=== PATIENT | female | born 1940 | race Caucasian/White ===

== ENCOUNTER 2017-01-12 22:00 | Emergency (ER) | payer MEDICARE, OTHER ==
--- NOTE | ~2017-01-12 | EKG ---
PATIENT: BRAULIO ATKINS UNIT #: [id number] Ventricular Rate: 88 BPM Atrial Rate: 88 BPM P-R Interval: 146 ms QRS Duration: 56 ms Q-T Interval: 354 ms QTC Calculation(Bezet): 428 ms P [place]: 84 degrees Calculated R [place]: -34 degrees Calculated T [place]: 6 degrees Diagnosis Line: Sinus rhythm with Premature atrial complexes Diagnosis Line: Left axis deviation Diagnosis Line: Cannot rule out Anteroseptal infarct (cited on or Diagnosis Line: before 12-JAN-2017) Diagnosis Line: Abnormal ECG Diagnosis Line: When compared with ECG of 12-JAN-2017 21:27, Diagnosis Line: (unconfirmed) Diagnosis Line: Normal sinus rhythm has replaced Supraventricular Diagnosis Line: tachycardia Diagnosis Line: Confirmed by ADA DE LEON MD ([id number]) on 01/13/2017 Diagnosis Line: 11:25:58 PM INTERPRETING MD: MOISES SIMMONS
--- NOTE | ~2017-01-12 | EKG ---
PATIENT: BRAULIO ATKINS UNIT #: [id number] Ventricular Rate: 163 BPM Atrial Rate: 163 BPM QRS Duration: 66 ms Q-T Interval: 292 ms QTC Calculation(Bezet): 480 ms Calculated R [place]: -21 degrees Calculated T [place]: 63 degrees Diagnosis Line: Supraventricular tachycardia Diagnosis Line: Cannot rule out Anteroseptal infarct , age Diagnosis Line: undetermined Diagnosis Line: Abnormal ECG Diagnosis Line: No previous ECGs available Diagnosis Line: Confirmed by ADA DE LEON MD ([id number]) on 01/13/2017 Diagnosis Line: 11:24:37 PM INTERPRETING MD: MOISES SIMMONS
[2017-01-12 21:55] LABS: BASOPHIL# 0.1 X10e3 (0-0.3); BASOPHIL% 1.1 % (0-2.5); EOSINOPHIL# 0.2 X10e3 (0-0.7); EOSINOPHIL% 2.8 % (0.0-7.0); HEMOGLOBIN 15.5 gm/dL (12.0-16.0); LYMPHOCYTE# 2.9 X10e3 (1.0-3.5); LYMPHOCYTE% 46.1 % (17.0-45.0); MEAN CELL VOLUME 93.2 FL (83-96); MEAN CORPUSCULAR HEMOGLOBIN 31.3 PG (28-34); MEAN CORPUSCULAR HGB CONC 33.6 g/dL (30-36); MEAN PLATELET VOLUME 8.6 FL (6.5-11.5); MONOCYTE# 0.8 X10e3 (0-1.0); MONOCYTE% 12.2 % (3.0-12.0); NEUTROPHIL# 2.4 X10e3 (1.5-7.1); NEUTROPHIL% 37.8 % (40-75); PLATELET COUNT 193 X10e3 (140-420); RED BLOOD COUNT 4.94 X10e (3.90-5.30); RED CELL DISTRIBUTION WIDTH 13.3 % (11.0-15.5); WHITE BLOOD COUNT 6.4 X10e3 (4.0-10.5)
[2017-01-12 22:04] LABS: POC - CKMB <1.0 ng/mL (0.0-7.9); POC - TROPONIN <0.05 ng/mL (<=0.05)
[2017-01-12 22:12] LABS: DIFF IND NO
[2017-01-12 22:18] LABS: ALBUMIN SERUM 4.4 g/dL (3.5-5.0); BILIRUBIN, DIRECT 0.2 mg/dL (0.0-0.2); BILIRUBIN,INDIRECT 0.5 mg/dL (0.0-0.9); BILIRUBIN,TOTAL 0.7 mg/dL (0.2-2.0); BUN/CREATININE RATIO 22.22; CREATININE SERUM 0.9 mg/dL (0.6-1.4); GLOM FILT RATE Estimated 62.2 mL/min (>60); PROTEIN TOTAL SERUM 7.3 g/dL (6.0-8.3)
== END 2017-01-12 23:05 | disposition home or self-care (01) ==
LOC: CED 22:00
PROVIDERS: Emergency Medicine
DX: I47.1 Supraventricular tachycardia (principal); Z88.2 Allergy status to sulfonamides
CPT/HCPCS: 36415; 80048; 80076; 82553; 84484; 85025; 93005; 99284

== ENCOUNTER 2017-01-13 16:39 | Emergency (ER) | payer MEDICARE, OTHER ==
--- NOTE | ~2017-01-13 | EKG ---
PATIENT: BRAULIO ATKINS UNIT #: [id number] Ventricular Rate: 158 BPM Atrial Rate: 153 BPM QRS Duration: 66 ms Q-T Interval: 286 ms QTC Calculation(Bezet): 463 ms Calculated R [place]: -12 degrees Calculated T [place]: 59 degrees Diagnosis Line: Atrial fibrillation with rapid ventricular Diagnosis Line: response Diagnosis Line: Septal infarct , age undetermined Diagnosis Line: Abnormal ECG Diagnosis Line: No previous ECGs available Diagnosis Line: Confirmed by ADA DE LEON MD ([id number]) on 01/13/2017 Diagnosis Line: 11:40:40 PM INTERPRETING MD: MOISES SIMMONS
--- NOTE | ~2017-01-13 | CR72 ---
[facility] A Service of [facility] RADIOLOGY TEXT RESULTS PATIENT: BRAULIO ATKINS LOCATION: [facility] : 40 UNIT #: [id number] AGE: [address]: Davidson Ha MD SEX: F ORDER DR: [id number] [facility] [address] [place], [place] [address] [id number] E MR#: [id number] #: [id number] NAME: BRAULIO ATKINS : 1940 SEX: F STUDY DATE/TIME: 01/13/2017 17:04 UNIT: [facility] ROOM: STUDY DESCRIPTION: CR Chest Single View Portable Attending Physician: Davidson Ha M.D. Ordering Physician: Ed Doctor [id number] [facility] Primary Care Physician: Sonido Schultz M.D. MEDICAL IMAGING REPORT This report is preliminary unless electronic signature is present EXAM Single view chest INDICATIONS Heart palpitations. Midchest pain for 1 day. FINDINGS Single portable AP view chest compared to 03/14/2015. The heart mediastinal contours are unchanged. Background COPD. No focal consolidation. No pleural effusion. There are defibrillator pads over the chest. IMPRESSION No acute cardiopulmonary findings or significant interval change. Dictated by... Juan F Ortega M.D. THIS IS AN ELECTRONICALLY VERIFIED REPORT Juan F Ortega M.D. at 01/13/2017 10:31 PM CASSIE/andrew TD: 01/13/2017 21:57 JOB #: [id number] MEDICAL IMAGING REPORT Page 1 of 1 COPY
--- NOTE | ~2017-01-13 | EKG ---
PATIENT: BRAULIO ATKINS UNIT #: [id number] Ventricular Rate: 85 BPM Atrial Rate: 85 BPM P-R Interval: 136 ms QRS Duration: 68 ms Q-T Interval: 336 ms QTC Calculation(Bezet): 399 ms P [place]: 29 degrees Calculated R [place]: -55 degrees Calculated T [place]: 52 degrees Diagnosis Line: Sinus rhythm with Premature atrial complexes Diagnosis Line: Left anterior fascicular block Diagnosis Line: Anteroseptal infarct (cited on or before Diagnosis Line: 12-JAN-2017) Diagnosis Line: Abnormal ECG Diagnosis Line: When compared with ECG of 12-JAN-2017 21:42, Diagnosis Line: (unconfirmed) Diagnosis Line: Normal sinus rhythm has replaced Atrial Diagnosis Line: fibrillation Diagnosis Line: Criteria for Inferior infarct are no longer Diagnosis Line: Present Diagnosis Line: Nonspecific T wave abnormality no longer evident Diagnosis Line: in Inferior leads Diagnosis Line: Confirmed by ADA DE LEON MD ([id number]) on 01/13/2017 Diagnosis Line: 11:42:10 PM INTERPRETING MD: MOISES SIMMONS
[2017-01-13 16:09] LABS: POC - CKMB 1.2 ng/mL (0.0-7.9); POC - TROPONIN <0.05 ng/mL (<=0.05)
[2017-01-13 16:51] LABS: BASOPHIL% 0.7 % (0-2.5); EOSINOPHIL# 0.1 X10e3 (0-0.7); EOSINOPHIL% 1.3 % (0.0-7.0); HEMOGLOBIN 16.6 gm/dL (12.0-16.0); LYMPHOCYTE# 1.9 X10e3 (1.0-3.5); LYMPHOCYTE% 31.8 % (17.0-45.0); MEAN CELL VOLUME 93.7 FL (83-96); MEAN CORPUSCULAR HGB CONC 33.1 g/dL (30-36); MEAN PLATELET VOLUME 8.7 FL (6.5-11.5); MONOCYTE# 0.6 X10e3 (0-1.0); MONOCYTE% 9.9 % (3.0-12.0); NEUTROPHIL# 3.4 X10e3 (1.5-7.1); NEUTROPHIL% 56.3 % (40-75); PLATELET COUNT 214 X10e3 (140-420); RED BLOOD COUNT 5.34 X10e (3.90-5.30); RED CELL DISTRIBUTION WIDTH 13.6 % (11.0-15.5)
[2017-01-13 16:52] LABS: DIFF IND NO
[2017-01-13 17:05] LABS: PARTIAL THROMBOPLASTIN TIME 25.9 SECONDS (23.5-31.3); PROTHROMBIN TIME (PATIENT) 10.4 SECONDS (9.6-11.5)
[2017-01-13 17:53] LABS: ALBUMIN SERUM 4.4 g/dL (3.5-5.0); BILIRUBIN, DIRECT 0.2 mg/dL (0.0-0.2); BILIRUBIN,INDIRECT 1.3 mg/dL (0.0-0.9); BILIRUBIN,TOTAL 1.5 mg/dL (0.2-2.0); BUN/CREATININE RATIO 31.42; CALCIUM SERUM 9.3 mg/dL (8.4-10.2); CREATININE SERUM 0.7 mg/dL (0.6-1.4); GLOM FILT RATE Estimated 84.2 mL/min (>60); POTASSIUM 4.4 mmol/L (3.5-5.1); PROTEIN TOTAL SERUM 7.3 g/dL (6.0-8.3)
[2017-01-13 18:14] LABS: URINE SOURCE CLEAN CATCH
[2017-01-13 18:19] LABS: URINE APPEARANCE CLEAR; URINE BILIRUBIN NEG (NEG); URINE BLOOD NEG (NEG); URINE COLOR YELLOW; URINE GLUCOSE NEG (NEG); URINE KETONE 1+ (NEG); URINE LEUKOCYTE ESTERASE NEG (NEG); URINE NITRATE NEG (NEG); URINE PROTEIN NEG (NEG); URINE SPECIFIC GRAVITY 1.015 (1.003-1.035); URINE UROBILINOGEN 0.2 MG/DL (NEG)
[2017-01-13 18:24] LABS: CULTURE INDICATED? NO
[2017-01-13 18:31] LABS: POC - CKMB <1.0 ng/mL (0.0-7.9); POC - TROPONIN <0.05 ng/mL (<=0.05)
== END 2017-01-13 19:40 | disposition home or self-care (01) ==
LOC: CED 16:39
PROVIDERS: Emergency Medicine
DX: R00.2 Palpitations (principal); Z88.2 Allergy status to sulfonamides
CPT/HCPCS: 71010; 80048; 80076; 81003; 82553; 84443; 84484; 85025; 85610; 85730; 93005; 96374; 99291; J0153

== ENCOUNTER 2017-01-23 07:16 | Observation (INO) | payer MEDICARE, OTHER ==
--- NOTE | ~2017-01-23 | EKG ---
PATIENT: BRAULIO ATKINS UNIT #: [id number] Ventricular Rate: 129 BPM Atrial Rate: 159 BPM QRS Duration: 68 ms Q-T Interval: 306 ms QTC Calculation(Bezet): 448 ms Calculated R [place]: -4 degrees Calculated T [place]: -16 degrees Diagnosis Line: Atrial fibrillation with rapid ventricular Diagnosis Line: response Diagnosis Line: Anteroseptal infarct (cited on or before Diagnosis Line: 12-JAN-2017) Diagnosis Line: Abnormal ECG Diagnosis Line: When compared with ECG of 23-JAN-2017 07:03, Diagnosis Line: (unconfirmed) Diagnosis Line: No significant change was found Diagnosis Line: Confirmed by ANA DOWNING MD ([id number]) on Diagnosis Line: 01/24/2017 4:48:33 PM INTERPRETING MD: JER
--- NOTE | ~2017-01-23 | CR72 ---
[facility] A Service of [facility] RADIOLOGY TEXT RESULTS PATIENT: BRAULIO ATKINS LOCATION: [facility] 558- : 40 UNIT #: [id number] AGE: [address]: Yaritza Eastman MD SEX: F ORDER DR: [id number] [facility] [address] [place], [place] [address] [id number] I MR#: [id number] #: [id number] NAME: BRAULIO ATKINS : 1940 SEX: F STUDY DATE/TIME: 01/23/2017 7:09 UNIT: [facility] ROOM: 07153 STUDY DESCRIPTION: CR Chest Single View Portable Attending Physician: Yaritza Eastman M.D. Ordering Physician: Clyde Karimi M.D. Primary Care Physician: Sonido Schultz M.D. MEDICAL IMAGING REPORT This report is preliminary unless electronic signature is present EXAM Portable chest, 1 view, 01/23/2017. COMPARISON 01/13/2017 CLINICAL HISTORY Chest pain, mid chest for 1 day. FINDINGS Redemonstrated mild pulmonary hyperexpansion and changes suggesting COPD along with mild cardiomegaly. No consolidation or effusion or pneumothorax, no suspicious nodule. Dictated by... Brian Reid M.D. THIS IS AN ELECTRONICALLY VERIFIED REPORT Brian Reid M.D. at 01/25/2017 11:19 AM MINISTERIO/pamela TD: 01/23/2017 10:00 JOB #: [id number] MEDICAL IMAGING REPORT Page 1 of 1 COPY
--- NOTE | ~2017-01-23 | EKG ---
PATIENT: BRAULIO ATKINS UNIT #: [id number] Ventricular Rate: 164 BPM Atrial Rate: 164 BPM P-R Interval: 164 ms QRS Duration: 64 ms Q-T Interval: 254 ms QTC Calculation(Bezet): 419 ms P [place]: 55 degrees Calculated R [place]: -37 degrees Calculated T [place]: 121 degrees Diagnosis Line: Atrial fibrillation with rapid ventricular Diagnosis Line: response Diagnosis Line: Left axis deviation Diagnosis Line: Septal infarct , age undetermined Diagnosis Line: Abnormal ECG Diagnosis Line: No previous ECGs available Diagnosis Line: Confirmed by ANA DOWNING MD ([id number]) on Diagnosis Line: 01/24/2017 4:47:32 PM INTERPRETING MD: JER
--- NOTE | ~2017-01-23 | EKG ---
PATIENT: BRAULIO ATKINS UNIT #: [id number] Ventricular Rate: 68 BPM Atrial Rate: 68 BPM P-R Interval: 166 ms QRS Duration: 70 ms Q-T Interval: 416 ms QTC Calculation(Bezet): 442 ms P [place]: 84 degrees Calculated R [place]: -30 degrees Calculated T [place]: 40 degrees Diagnosis Line: Normal sinus rhythm Diagnosis Line: Left axis deviation Diagnosis Line: Poor R wave progression questionable lead position Diagnosis Line: or body habitus Diagnosis Line: Abnormal ECG Diagnosis Line: Sinus rhythm has been restored. Diagnosis Line: Confirmed by CHANG SIMMONS, ANA ([id number]) on Diagnosis Line: 01/24/2017 4:51:37 PM INTERPRETING MD: JER
--- NOTE | ~2017-01-23 | EKG ---
PATIENT: BRAULIO ATKINS UNIT #: [id number] Ventricular Rate: 62 BPM Atrial Rate: 62 BPM P-R Interval: 122 ms QRS Duration: 72 ms Q-T Interval: 426 ms QTC Calculation(Bezet): 432 ms P [place]: 71 degrees Calculated R [place]: 1 degrees Calculated T [place]: -2 degrees Diagnosis Line: Sinus rhythm with Premature supraventricular Diagnosis Line: complexes Diagnosis Line: Septal infarct , age undetermined Diagnosis Line: Abnormal ECG Diagnosis Line: Diagnosis Line: Confirmed by ADA DE LEON MD ([id number]) on 01/25/2017 Diagnosis Line: 7:15:39 AM INTERPRETING MD: MOISES SIMMONS
--- NOTE | ~2017-01-23 | HP ---
Unit #: [id number] #: [id number] Patient: BRAULIO ATKINS [id number] [facility]. [place] [id number] [place], [place] [address] [id number] I MR#: [id number] NAME: BRAULIO ATKINS ROOM: 558 Age: 76 Sex: F Admission Date: 01/23/2017 : 1940 Attending Physician: Yaritza Eastman M.D. Primary Care Physician: Sonido Schultz M.D. HISTORY AND PHYSICAL HISTORY OF PRESENT ILLNESS This is a 76-year-old white female, previously known to Dr. Hayes, with a past medical history of paroxysmal supraventricular tachycardia. She denies previous episodes of atrial fibrillation or need for anticoagulation. She reportedly had a stress test approximately 10 years ago that had to be stopped. Details are unavailable. She denies hypertension, hyperlipidemia, diabetes mellitus, myocardial infarction or cerebrovascular accident. She has not followed by Dr. Hayes in the last couple of years. She states that her blood pressure is borderline low, but according to home medications she is on Toprol and possibly lisinopril. Details of medications have been requested from her pharmacy and her daughter. She presented to the emergency department with complaints of dizziness and palpitations. She states that she woke up this morning around 5 a.m. and was walking to the bathroom when she felt her heart racing. She was lightheaded and dizzy. She fell to her knees, but did not fall completely. There was no loss of consciousness. She did feel very weak, but was able to stand up. She also felt pain in her midsternal chest that was described as tightness and pressure. There was no radiation to the neck, jaw, shoulders or arms. There were no associated symptoms of nausea, vomiting or diaphoresis. She attempted to bear down to lower her heart rate and it helped some, but then her heart rate began to beat fast again. She presented to the emergency department for evaluation. Upon review of records, she was also in the emergency department on 01/12/2017 and 01/13/2017 for similar symptoms. There was an EKG that was read as atrial fibrillation, but she was not admitted at that time. PAST MEDICAL HISTORY 1. Recent visit to the emergency department 01/12/2017 and 01/13/2017 for chest pain and palpitations. EKG on 01/13/2017 revealed atrial fibrillation with rapid ventricular response. 2. Stress test reportedly 10 years ago. Details unavailable. 3. Mitral valve prolapse. 4. Borderline hypotension, reported per patient. 5. History of hypertension. 6. Family history of coronary artery disease. 7. Nonsmoker. PAST SURGICAL HISTORY Cyst removal from breast, nonmalignant. SOCIAL HISTORY The patient is a nonsmoker. She denies alcohol or illicit drug use. Unit #: [id number] #: [id number] Patient: BRAULIO ATKINS FAMILY HISTORY Significant for heart disease. Her two brothers had myocardial infarctions. Her sister had a myocardial infarction. Her mother had an irregular heartbeat. ALLERGIES Sulfa. Possible dye allergy. HOME MEDICATIONS A list of home medications is under review. Medication included 1. Multivitamin. 2. Toprol. REVIEW OF SYSTEMS Ten point review of systems negative except for details noted above in history of present illness. PHYSICAL EXAMINATION GENERAL: This is a 76-year-old white female in no acute distress. VITALS: Temperature 98, pulse 91, blood pressure 123/81. SKIN: Warm and dry. NECK: Supple. No jugular venous distension. No hepatojugular reflux. Normal carotid upstrokes. No carotid bruits. LUNGS: Bilateral breath sounds have good air entry throughout all lung laureano. Respirations even and unlabored. No rales, rhonchi or wheezes. HEART: S1 and S2. Irregular, irregular. No murmurs, rubs or gallops. ABDOMEN: Soft, nontender and nondistended. Positive bowel sounds auscultated all four quadrants. No ascites noted. EXTREMITIES: Bilateral lower extremities have no pretibial pitting edema. DP and PT pulses 2+. Capillary refill less than 3 seconds. DIAGNOSTIC STUDIES IMAGING: Chest x-ray on 01/13/2017 revealed no acute findings. Chest x-ray from today pending. LABORATORY: White blood cell count 3.9, hemoglobin 14.7, hematocrit 45.4, platelets 144, sodium 139, potassium 3.9, chloride 103, CO2 27, BUN 16, creatinine 0.6, glucose 106, AST 15, ALT 14, alkaline phosphatase 56. BNP 296. Troponin 0.05. TSH 4.89, INR 1.1, d-dimer pending. CARDIOVASCULAR: Electrocardiogram reveals atrial flutter with rapid ventricular response with poor R wave progression. Previous EKG revealed ST depression in the anterolateral leads. ASSESSMENT 1. Recurrent atrial fibrillation/atrial flutter with rapid ventricular response. 2. Acute coronary syndrome. 3. History of mitral valve prolapse. 4. History of hypertension. 5. Family history coronary artery disease. 6. Possible IV dye allergy. PLAN 1. The patient presented to the hospital with complaints of Unit #: [id number] #: [id number] Patient: BRAULIO ATKINS palpitations, dizziness and chest pain. She was found to have atrial fibrillation/atrial flutter with rapid ventricular response. She was given a dose of IV Lopressor and her heart rate has improved, but remains irregular. 2. TSH level is normal. 3. There is no evidence of congestive heart failure on exam. 4. The patient reports chest pain. Initial EKG reveals an ST depression anterolateral leads. Once heart rate improved ST depression resolved but there was loss of R wave. 5. The patient has been recommended to undergo cardiac catheterization. The risks and benefits have been discussed and she verbalizes understanding. 6. She will be premedicated for possible dye allergy. 7. Her medications will be verified with her pharmacy and daughter. 8. Fasting lipid profile will be obtained. 9. The patient has a CHADS 2 VAD score of 4 due to age, gender and history of hypertension. The cost of Eliquis will be assessed with case management. 10. Two-dimensional echocardiogram will be ordered to assess left ventricular function and valves. Dictated by Caitlyn Chicas APRN for Janet Quesada TD: 01/23/2017 13:32 JOB #: [id number] HISTORY AND PHYSICAL Page 1 of 1 X X HISTORY AND PHYSICAL
--- NOTE | ~2017-01-23 | DS ---
Unit #: [id number] #: [id number] Patient: BRAULIO ATKINS [id number] [facility] [address] [place], [place] [address] [id number] I MR#: [id number] NAME: BRAULIO ATKINS ROOM: 8 Age: 76 Sex: F Admission Date: 01/23/2017 : 1940 Discharge Date: 01/24/2017 Attending Physician: Yaritza Eastman M.D. Primary Care Physician: Sonido Schultz M.D. DISCHARGE SUMMARY DISCHARGE DIAGNOSES 1. Recurrent atrial fibrillation/atrial flutter with rapid ventricular response, now in sinus rhythm. 2. 2D echocardiogram on 01/24/2017 revealed a left ventricular ejection fraction of approximately 50% to 55%. Moderate aortic regurgitation. Mild mitral and tricuspid regurgitation. 3. Chest pain with ST depression and loss of R waves. Status post cardiac catheterization on 01/23/[address] [facility] per Dr. Mcgowan with normal coronaries. Ejection fraction 65%. LVEDP 6. Medical management. 4. Hypertension. 5. History of osteopenia. 6. History of reported mitral valve prolapse. 7. History of paroxysmal supraventricular tachycardia. 8. Family history of coronary artery disease. 9. Mild leukopenia. 10. Nonsmoker. DISCHARGE MEDICATIONS 1. Metoprolol tartrate 25 mg p.o. b.i.d. with additional dose as needed for palpitations. 2. Multivitamin, one capsule p.o. daily. 3. Aspirin 81 mg p.o. daily. 4. Amiodarone 200 mg p.o. daily. 5. Eliquis 5 mg p.o. b.i.d. HOSPITAL COURSE This is a 76-year-old white female, previously known to Dr. Hayes, with a past medical history of paroxysmal supraventricular tachycardia. She denies any history of atrial fibrillation. However, she went to the emergency department on 01/12 and 01/13/2017 with complaints of palpitations and chest pain. Multiple EKGs were obtained and one EKG did reveal atrial fibrillation with rapid ventricular response. She presented back to the emergency department on 01/22/2017 with complaints of palpitations and chest pain. EKG revealed atrial fibrillation/atrial flutter with a rapid ventricular response. She had some ST depression initially. Once her heart rate improved, ST depression resolved but she did lose her R waves in the anterior leads. Cardiac enzymes were negative. She ruled out for a myocardial infarction. TSH and lipid profile were normal. Due to chest pain and ST depression and loss of R waves, she was recommended for cardiac catheterization. She was taken for cardiac catheterization on 01/23/[address] Mcgowan. Coronaries were normal. Ejection fraction was 65%. She tolerated the procedure well without complication. She was transferred to telemetry for observation. Her metoprolol was increased Unit #: [id number] #: [id number] Patient: BRAULIO ATKINS for atrial fibrillation and she subsequently converted to sinus rhythm with metoprolol. She was started on low dose amiodarone to help maintain sinus rhythm. CHADS2-VASc score was 4 due to age, gender, and hypertension. The cost of Eliquis was assessed and is affordable. She will be sent home on Eliquis as well as amiodarone and metoprolol. She has been instructed to take an extra dose of metoprolol for palpitations. The office will arrange a followup appointment with Dr. Eastman for six to eight weeks. DIAGNOSTIC STUDIES LABORATORY: White blood cell count 3.9, hemoglobin 13.6, hematocrit 41.6, platelets 142. Sodium 142, potassium 4.4, chloride 108, CO2 27, BUN 22, creatinine 0.7, glucose 127, AST 15, ALT 14, alkaline phos. 56. Troponin 0.03, 0.03 and 0.03. BNP 296. Total cholesterol 166, triglycerides 42, LDL 91, HDL 67, TSH 4.89, INR 1.1. D-dimer 591. IMAGING: Chest x-ray reveals mild pulmonary hyperexpansion with mild cardiomegaly. No consolidation, effusion, pneumothorax or suspicious nodule. CARDIOVASCULAR: Electrocardiogram revealed atrial fibrillation/atrial flutter with RVR. Initial ST depression. Repeat EKG with loss of R waves. EKG on 01/24/2017 reveals sinus rhythm. No acute ST or T wave changes. PHYSICAL EXAMINATION VITAL SIGNS: Temperature 98.2, pulse 70, blood pressure 121/73. CONSTITUTIONAL: This is a 76-year-old white female in no acute distress. SKIN: Warm and dry. NECK: Supple. No jugular vein distention noted. No hepatojugular reflux. Normal carotid upstrokes. No carotid bruits auscultated. HEART: S1 and S2. Regular rate and rhythm. No murmurs, rubs or gallops. LUNGS: Bilateral breath sounds have good air entry throughout all lung laureano. Respirations even and unlabored. No rales, rhonchi, or wheezes. ABDOMEN: Soft, nontender, and nondistended. Positive bowel sounds auscultated x4 quadrants. No ascites noted. EXTREMITIES: Bilateral extremities have no pretibial pitting edema. DP and PT pulses 2+. Capillary refill less than three seconds. DISCHARGE INSTRUCTIONS 1. The patient will be discharged home today. 2. Follow up with primary care in one to two weeks. 3. Follow up with Dr. Eastman in six to eight weeks. Office to call with an appointment. 4. Prescriptions provided for metoprolol tartrate, amiodarone and Eliquis. The patient has been given 30 day and 90 day supplies per request. 5. Post cath instructions provided. Dictated by... Caitlyn Chicas APRN for Janet Quesada TD: 01/27/2017 07:10 Unit #: [id number] #: [id number] Patient: BRAULIO ATKINS JOB #: [id number] DISCHARGE SUMMARY Page 1 of 1 X X DISCHARGE SUMMARY
[2017-01-23 07:06] LABS: POC - CKMB <1.0 ng/mL (0.0-7.9); POC - TROPONIN <0.05 ng/mL (<=0.05)
[2017-01-23 07:27] LABS: BASOPHIL# 0.1 X10e3 (0-0.3); BASOPHIL% 1.6 % (0-2.5); EOSINOPHIL# 0.2 X10e3 (0-0.7); EOSINOPHIL% 4.7 % (0.0-7.0); HEMATOCRIT 45.4 % (35.0-45.0); HEMOGLOBIN 14.7 gm/dL (12.0-16.0); LYMPHOCYTE# 1.3 X10e3 (1.0-3.5); MEAN CELL VOLUME 93.9 FL (83-96); MEAN CORPUSCULAR HEMOGLOBIN 30.3 PG (28-34); MEAN CORPUSCULAR HGB CONC 32.3 g/dL (30-36); MONOCYTE# 0.5 X10e3 (0-1.0); MONOCYTE% 12.4 % (3.0-12.0); NEUTROPHIL# 1.8 X10e3 (1.5-7.1); NEUTROPHIL% 47.3 % (40-75); PLATELET COUNT 144 X10e3 (140-420); RED BLOOD COUNT 4.84 X10e (3.90-5.30); RED CELL DISTRIBUTION WIDTH 13.4 % (11.0-15.5); WHITE BLOOD COUNT 3.9 X10e3 (4.0-10.5)
[2017-01-23 07:28] LABS: DIFF IND NO
[2017-01-23 07:40] LABS: INR 1.1; PARTIAL THROMBOPLASTIN TIME 26.4 SECONDS (23.5-31.3); PROTHROMBIN TIME (PATIENT) 11.3 SECONDS (9.6-11.5)
[2017-01-23 08:13] LABS: BILIRUBIN, DIRECT 0.2 mg/dL (0.0-0.2); BILIRUBIN,INDIRECT 1.2 mg/dL (0.0-0.9); BILIRUBIN,TOTAL 1.4 mg/dL (0.2-2.0); BUN/CREATININE RATIO 26.66; CALCIUM SERUM 8.7 mg/dL (8.4-10.2); CREATININE SERUM 0.6 mg/dL (0.6-1.4); GLOM FILT RATE Estimated 88.5 mL/min (>60); POTASSIUM 3.9 mmol/L (3.5-5.1); PROTEIN TOTAL SERUM 6.3 g/dL (6.0-8.3)
[2017-01-23 08:29] LABS: POC - CKMB <1.0 ng/mL (0.0-7.9); POC - TROPONIN <0.05 ng/mL (<=0.05)
[2017-01-23] MEDS ORDERED: DUTOPROL 25-121 EACH PO (09:24)
[2017-01-23] MEDS ORDERED: MULTIVITAMINS1 EAC3 PO (09:24)
[2017-01-23 14:07] LABS: HEMATOCRIT 42.9 % (35.0-45.0); MEAN CELL VOLUME 93.4 FL (83-96); MEAN CORPUSCULAR HEMOGLOBIN 30.5 PG (28-34); MEAN CORPUSCULAR HGB CONC 32.6 g/dL (30-36); MEAN PLATELET VOLUME 9.1 FL (6.5-11.5); RED BLOOD COUNT 4.59 X10e (3.90-5.30); RED CELL DISTRIBUTION WIDTH 13.5 % (11.0-15.5); WHITE BLOOD COUNT 4.3 X10e3 (4.0-10.5)
[2017-01-23 14:20] LABS: INR 1.1; PARTIAL THROMBOPLASTIN TIME 29.2 SECONDS (23.5-31.3); PROTHROMBIN TIME (PATIENT) 11.3 SECONDS (9.6-11.5)
[2017-01-23 14:34] LABS: CK TOTAL 46 IU/L (26-140)
[2017-01-23 14:38] LABS: CHOLESTEROL 166 mg/dL (0-200); HDL CHOLESTEROL 67 mg/dL (35-95); LDL CHOLESTEROL 91 mg/dL (-130); LDL/HDL RATIO 1 RATIO (0-4); TRIGLYCERIDES 42 mg/dL (10-160)
[2017-01-23 15:57] LABS: CALCIUM SERUM 8.6 mg/dL (8.4-10.2); CREATININE SERUM 0.6 mg/dL (0.6-1.4); GLOM FILT RATE Estimated 88.5 mL/min (>60); POTASSIUM 4.7 mmol/L (3.5-5.1)
[2017-01-23 18:42] LABS: CK TOTAL 42 IU/L (26-140)
[2017-01-24 05:36] LABS: HEMATOCRIT 41.6 % (35.0-45.0); HEMOGLOBIN 13.6 gm/dL (12.0-16.0); MEAN CELL VOLUME 92.9 FL (83-96); MEAN CORPUSCULAR HEMOGLOBIN 30.4 PG (28-34); MEAN CORPUSCULAR HGB CONC 32.7 g/dL (30-36); MEAN PLATELET VOLUME 8.8 FL (6.5-11.5); RED BLOOD COUNT 4.48 X10e (3.90-5.30); RED CELL DISTRIBUTION WIDTH 13.2 % (11.0-15.5); WHITE BLOOD COUNT 3.9 X10e3 (4.0-10.5)
[2017-01-24 07:14] LABS: BUN/CREATININE RATIO 31.42; CALCIUM SERUM 8.8 mg/dL (8.4-10.2); CREATININE SERUM 0.7 mg/dL (0.6-1.4); GLOM FILT RATE Estimated 84.2 mL/min (>60); POTASSIUM 4.4 mmol/L (3.5-5.1)
[2017-01-24] MEDS ORDERED: LOPRESSOR PO (12:00)
[2017-01-24] MEDS ORDERED: AMIODARONE PO (12:01)
[2017-01-24] MEDS ORDERED: ELIQUIS5 MG PO (12:01)
[2017-01-24] MEDS ORDERED: ASPIRIN81 M2 PO (12:02)
== END 2017-01-24 15:02 | disposition home or self-care (01) ==
LOC: CED 07:16 → CEDOF 08:40 → C5B 10:50
PROVIDERS: Emergency Medicine; Internal Medicine Cardiovascular Disease
DX: I48.2 Chronic atrial fibrillation (principal); I08.3 Combined rheumatic disorders of mitral, aortic and tricuspid valves; R07.89 Other chest pain; I10 Essential (primary) hypertension; Z82.49 Family history of ischemic heart disease and other diseases of the circulatory system; D72.819 Decreased white blood cell count, unspecified; Z86.79 Personal history of other diseases of the circulatory system; Z87.39 Personal history of other diseases of the musculoskeletal system and connective tissue; Z79.01 Long term (current) use of anticoagulants; Z88.2 Allergy status to sulfonamides
CPT/HCPCS: 36415; 71010; 80048; 80061; 80076; 82550; 82553; 83880; 84443; 84484; 85025; 85027; 85379; 85610; 85730; 93005; 93306; 96374; 96375; 99291; C1760; C1769; C1887; C1894; G0378; J1644; J1650; J2250; J2930; J3010; J3490